=== PATIENT | female | born 1965 | race Caucasian/White ===

== ENCOUNTER → 2017-01-07 | Outpatient (CLI) | payer BC ==
--- NOTE | 2017-01-07 13:31 | Diagnostic Imaging Report ---
PROCEDURE: MR imaging of the brain without contrast. TECHNIQUE: Multiplanar, multisequence MR imaging of the brain was performed without contrast. INDICATION: Headache, bilateral arm tingling. COMPARISON: There are no previous studies available for comparison. FINDINGS: There is no mass, shift of the midline, or hemorrhage to suggest an acute intracranial abnormality. There is no abnormal signal arising from the brain on the diffusion series to indicate an area of acute ischemia either. The ventricles are not abnormally dilated. There is no signal abnormality in the periventricular white matter to suggest demyelinating disease. There is mild cortical atrophy present. The degree of atrophy is consistent with the patient's age. The orbits are symmetrical and within normal limits. The sinuses are generally clear. The seventh and eighth nerve complexes are unremarkable. IMPRESSION: 1. There is no evidence for an acute intracranial abnormality. 2. There is no sign of a mass, nor is there any evidence for demyelinating disease. Dictated by: Dictated on workstation # [id number]
--- NOTE | 2017-01-07 13:40 | Diagnostic Imaging Report ---
PROCEDURE: MR imaging cervical spine without contrast. TECHNIQUE: Multiplanar, multisequence MR imaging of the cervical spine was performed without contrast. INDICATION: Headaches, dizziness. FINDINGS: There are no previous MRI examinations available for comparison. The plain film examination of the cervical spine performed on 03/10/2015 failed to show any sign of an acute bony abnormality. On the parasagittal images of this exam, the vertebral body heights are within normal limits and similar to the prior plain film exam. There is desiccation of the disc at every level, and there is mild narrowing of the disc space at C5-6 and C6-7. There are minimal disc bulges at these two levels, but the thecal sac itself is generous. There is no sign of spinal stenosis or nerve root encroachment. The remainder of the cervical spine is unremarkable for spinal stenosis or nerve root encroachment as well. There is no abnormal signal arising from the cord or the vertebral bodies to indicate an acute abnormality. There is no sign of a paraspinal mass. The expected carotid and vertebral flow voids are evident bilaterally. IMPRESSION: 1. There is moderate degenerative disc disease throughout the cervical spine. There is no evidence for spinal stenosis or nerve root encroachment at any level, however. 2. There is no sign of an acute bony abnormality or of a cord lesion. Dictated by: Dictated on workstation # [id number]
== END ==
LOC: RAD 09:12
PROVIDERS: ATTEND Family Medicine
DX: M50.322 Other cervical disc degeneration at C5-C6 level (principal); M50.323 Other cervical disc degeneration at C6-C7 level; R51 Headache; M62.81 Muscle weakness (generalized)
CPT/HCPCS: 70551; 72141

== ENCOUNTER → 2017-04-18 | Outpatient (CLI) | payer BC ==
--- NOTE | 2017-04-21 18:54 | Diagnostic Imaging Report ---
Bilateral screening mammogram 2D views with tomosynthesis. The current study was also evaluated with a Computer Aided Detection (CAD) system. INDICATION: Screening. No current complaints stated on the questionnaire. COMPARISON: 03/29/2016. FINDINGS: The breasts are composed of scattered fibroglandular densities. There are punctate calcifications seen. Allowing for technique and positional differences, no suspicious change is seen. IMPRESSION: No significant change. ACR BI-RADS Category 2: Benign findings. Result letter will be mailed to the patient. Note: At least 10% of breast cancer is not imaged by mammography. Dictated by: Dictated on workstation # [id number]
== END ==
LOC: RAD 12:30
PROVIDERS: ATTEND Family Medicine
DX: Z12.31 Encounter for screening mammogram for malignant neoplasm of breast (principal)
CPT/HCPCS: 77067

== ENCOUNTER 2017-06-09 14:24 | Emergency (ER) | payer BC ==
[~2017-06-09] VITALS: Ht 170.2 cm; Wt 99.8 kg
[2017-06-09] MEDS ORDERED: morphine INJ 10 MG/ML 1ML (SYR OR VIAL) IM ONE (14:45)
[2017-06-09] MEDS ORDERED: DOCU-143 PO (15:04)
[2017-06-09] MEDS ORDERED: OXYC-197 PO (15:04)
--- NOTE | 2017-06-09 15:04 | ED Hip Pain/Injury ---
General Chief Complaint: Hip/Pelvic Problems Stated Complaint: TREE LIMB FELL ON HER AT HOME-HIP PAIN Nursing Triage Note: PT WAS TAKING PICTURES WHEN A LARGE LIMB FELL OUT OF A TREE AND HIT THE PATIENT. Source: patient Exam Limitations: no limitations History of Present Illness Time seen by provider: 15:01 Initial Comments To ER with reports of bilateral hip pain left greater than right. This occurred just prior to arrival. She was sitting on her front porch with her granddaughter eating cupcakes when she heard a rustling in the trees above her. She believed to be a squirrel, looked up and saw branch coming down. The branches landed on her right hip, the left hip was against the ground. She has been ambulatory since this happened however, being ambulatory worsens her pain. Timing/Duration: just prior to arrival Severity: moderate Location: hip (R), hip (L), pelvis Associated Symptoms: denies symptoms Allergies and Home Medications Allergies Uncoded Allergies: SULFA (Allergy, Unknown, 07/25/10) Home Medications Docusate Sodium 100 Mg Capsule, 100 MG PO DAILY, #30 Prescribed by: NOMAN ALEXIS on 06/09/17 1504 Oxycodone HCl/Acetaminophen 1 Each Tablet, 1 EACH PO Q4H PRN for PAIN-SEVERE, # 60 Prescribed by: NOMAN ALEXIS on 06/09/17 1504 Constitutional: see HPI EENTM: see HPI Respiratory: no symptoms reported Cardiovascular: no symptoms reported Genitourinary: no symptoms reported Musculoskeletal: see HPI Skin: no symptoms reported Psychiatric/Neurological: No Symptoms Reported Past Ifgaubm-Xdmfjk-Osehwp Hx Patient Social History Recent Foreign Travel: No Contact w/Someone Who Travel: No Recent Infectious Disease Expo: No Physical Exam Vital Signs Vital Sign - Last 12Hours 06/09/17 14:44 Temp 97.5 Pulse 70 Resp 16 B/P (MAP) 145/92 Pulse Ox 98 O2 Delivery Room Air Capillary Refill : Less Than 3 Seconds General Appearance: No Apparent Distress, WD/WN, Mild Distress HEENT: PERRL/EOMI, TMs Normal Respiratory: No Accessory Muscle Use, No Respiratory Distress Gastrointestinal: Non Tender, Soft Extremity: Normal Capillary Refill, Normal Inspection Neurologic/Psychiatric: Alert, Oriented x3, No Motor/Sensory Deficits Skin: Normal Color, Warm/Dry, Other (ecchymosis over the lateral right hip as well as a superficial abrasion) Progress/Results/Core Measures Results/Orders My Orders Orders - NOMAN ALEXIS APRN Pelvis/Anette Hips 2 Views (06/09/17 14:42) Morphine Injection (Morphine Injection (06/09/17 14:45) Ct Pelvis Wo (06/09/17 15:00) Medications Given in ED Current Medications Medications Dose Ordered Sig/Adiel Route Start Time Stop Time Status Last Admin Dose Admin Morphine Sulfate 8 mg ONCE ONCE IM 06/09/17 14:45 06/09/17 14:46 DC 06/09/17 14:52 8 MG Vital Signs/I&O Vital Sign - Last 12Hours 06/09/17 06/09/17 14:44 14:52 Temp 97.5 97.5 Pulse 70 Resp 16 B/P (MAP) 145/92 Pulse Ox 98 O2 Delivery Room Air Blood Pressure Mean: 109 Diagnostic Imaging Diagonstic Imaging: CT Comments NAME: ABHI SERNA Swipp REC#: [id number] PT STATUS: REG ER : 1965 PHYSICIAN: NOMAN ALEXIS APRN ADMIT DATE: 06/09/17/ER Draft Date of Exam:06/09/17 PELVIS/ANETTE HIPS 2 VIEWS INDICATION: Trauma. FINDINGS: There are nondisplaced fractures in the left superior and inferior pubic rami. The femoral heads and necks as well as acetabulum are intact. The right obturator ring, the symphysis and SI joints are intact. IMPRESSION: Nondisplaced fractures of the left traveling operator ring at the superior and inferior rami, no other injury apparent. Dictated on workstation # [id number] Dict: 06/09/17 1517 Trans: 06/09/17 1519 [facility] [id number] Interpreted by: IMAN GOLD Electronically signed by: NAME: ABHI SERNA Swipp REC#: [id number] PT STATUS: REG ER : 1965 PHYSICIAN: NOMAN ALEXIS APRN ADMIT DATE: 06/09/17/ER Draft Date of Exam:06/09/17 CT PELVIS WO PROCEDURE: CT pelvis without contrast. TECHNIQUE: Multiple contiguous axial images were obtained through the pelvis without the use of intravenous contrast. Sagittal and coronal reformations were performed. INDICATION: Crush injury results in left hip pain. FINDINGS: There are subtle nondisplaced fractures of the left superior and inferior pubic rami. The visualized subtrochanteric shaft, trochanters, neck and head of the femur, as well as the acetabulum are intact. The right hip is intact. No symphyseal or SI joint diastasis. Visualized lower lumbar spine and lumbosacral junction are intact. No pelvic free fluid. There are noninflamed diverticula. The uterus, adnexa, and urinary bladder are unremarkable. No significant pelvic hemorrhage evident. IMPRESSION: Nondisplaced fractures of the left superior and inferior pubic rami. Femur, acetabulum, and right hemipelvis are intact. No free fluid or significant hemorrhage. No other significant finding. Dictated on workstation # [id number] Dict: 06/09/17 1513 Trans: 06/09/17 1520 [id number] Interpreted by: IMAN GOLD Electronically signed by: Departure Communication (Admissions) Progress Notes I discussed the case with Dr. Nowak who is on-call for orthopedics. He recommends weightbearing as tolerated with a walker, pain control and outpatient follow-up. Impression Impression: Primary Impression: Fracture of left superior pubic ramus Disposition: HOME, SELF-CARE Condition: Stable Departure-Patient Inst. Decision time for Depature: 15:02 Referrals: CHRISTOPHER PEARCE MD, JOHN T MD ORENDER, JACQUELINE S DO (PCP/Family) Primary Care Physician JESSE VARMA MICHAEL P MD Patient Instructions: Pelvic Fracture (DC) Add. Discharge Instructions: 1. Use a walker when walking to help with pain for the next few weeks 2. Pain medication as directed 3. Call orthopedic surgeon of your choosing tomorrow to make an appointment to be seen for follow-up. All discharge instructions reviewed with patient and/or family. Voiced understanding. Scripts Docusate Sodium (Colace) 100 Mg Capsule 100 MG PO DAILY, #30 CAP Prov: NOMAN ALEXIS APRN 06/09/17 Oxycodone HCl/Acetaminophen (Percocet 5-325 mg Tablet) 1 Each Tablet 1 EACH PO Q4H Y for PAIN-SEVERE, #60 TAB Prov: NOMAN ALEXIS APRN 06/09/17 Work/School Note: Work Release Form Date Seen in the Emergency Department: Jun 09, 2017 Return to Work: Jun 16, 2017 NOMAN ALEXIS APRN Jun 09, 2017 15:04
--- NOTE | 2017-06-09 15:20 | Diagnostic Imaging Report ---
PROCEDURE: CT pelvis without contrast. TECHNIQUE: Multiple contiguous axial images were obtained through the pelvis without the use of intravenous contrast. Sagittal and coronal reformations were performed. INDICATION: Crush injury results in left hip pain. FINDINGS: There are subtle nondisplaced fractures of the left superior and inferior pubic rami. The visualized subtrochanteric shaft, trochanters, neck and head of the femur, as well as the acetabulum are intact. The right hip is intact. No symphyseal or SI joint diastasis. Visualized lower lumbar spine and lumbosacral junction are intact. No pelvic free fluid. There are noninflamed diverticula. The uterus, adnexa, and urinary bladder are unremarkable. No significant pelvic hemorrhage evident. IMPRESSION: Nondisplaced fractures of the left superior and inferior pubic rami. Femur, acetabulum, and right hemipelvis are intact. No free fluid or significant hemorrhage. No other significant finding. Dictated by: Dictated on workstation # [id number]
--- NOTE | 2017-06-09 15:20 | Diagnostic Imaging Report ---
INDICATION: Trauma. FINDINGS: There are nondisplaced fractures in the left superior and inferior pubic rami. The femoral heads and necks as well as acetabulum are intact. The right obturator ring, the symphysis and SI joints are intact. IMPRESSION: Nondisplaced fractures of the left transportation maintenance operator ring at the superior and inferior rami, no other injury apparent. Dictated by: Dictated on workstation # [id number]
[2017-06-09] MEDS ORDERED: IBUPROFEN 800 MG (MOTRIN) TAB PO ONE (15:30)
[2017-06-09] MEDS ORDERED: ONDANSETRON 4 MG (ZOFRAN) ORAL DISSOLVE TAB PO ONE (16:00)
[2017-06-09 16:19] VITALS: BP 138/70
== END 2017-06-09 16:19 | disposition home or self-care (01) ==
LOC: EDUNIT# 14:24 → ER 14:26
DX: S32.512A Fracture of superior rim of left pubis, initial encounter for closed fracture (principal); W20.8XXA Other cause of strike by thrown, projected or falling object, initial encounter
CPT/HCPCS: 72192; 73521; 96372; 99284

== ENCOUNTER → 2018-02-10 | Outpatient (CLI) | payer BC ==
[~2018-02-10] MED LIST: CAND16TA PO; DOCU-143 PO; LEVO150T6 PO; OXYC-197 PO
--- NOTE | 2018-02-10 08:23 | Diagnostic Imaging Report ---
Clinical indication: Patient with elevated liver enzymes. Exam: Right upper quadrant ultrasound. Comparison: None. Findings: Limited exam due to patient body habitus and overlying bowel gas. Portion of the body and pancreatic tail are obscured. Visualized portion of pancreatic head shows no significant abnormality. The liver is enlarged measuring 19.8 cm in craniocaudal dimension. The liver surface is smooth. There is no intrahepatic ductal dilation seen. The gallbladder is unremarkable with no significant gallbladder wall thickening, stones or pericholecystic fluid. There is no sonographic Soto sign. The common bile duct is obscured and cannot be evaluated. The right kidney has normal echogenicity, size and cortical thickness without hydronephrosis or mass. The right kidney measures 12.2 cm in craniocaudal dimension. There is no abdominal ascites. The visualized portions of the IVC shows no significant abnormality. IMPRESSION: 1: Limited exam due to patient body habitus and overlying bowel gas. 2: The common bile duct is obscured. There is also incomplete visualization of the pancreas. If there is clinical concern for pancreatic abnormality, serology tests may better evaluate. 3: Hepatomegaly of unknown etiology. 4: Gallbladder is unremarkable. Dictated by: Dictated on workstation # [id number]
== END ==
LOC: RAD 06:40
PROVIDERS: ATTEND Family Medicine
DX: R16.0 Hepatomegaly, not elsewhere classified (principal)
CPT/HCPCS: 76705

== ENCOUNTER 2018-03-09 15:00 | Outpatient (CLI) | payer BC ==
[~2018-03-09] VITALS: Ht 170.2 cm; Wt 99.8 kg
[~2018-03-09 15:00] MED LIST changes: -CAND16TA PO; -LEVO150T6 PO
[2018-03-09] MEDS ORDERED: CAND16TA PO (16:20)
[2018-03-09] MEDS ORDERED: LEVO150T6 PO (16:20)
== END 2018-03-09 16:00 ==
LOC: PREOP 15:00
PROVIDERS: ATTEND Surgery
DX: Z01.818 Encounter for other preprocedural examination (principal); Z12.11 Encounter for screening for malignant neoplasm of colon

== ENCOUNTER 2018-03-16 11:22 | Day surgery (SDC) | payer BC ==
[~2018-03-16] VITALS: Ht 170.2 cm; Wt 99.8 kg
[~2018-03-16 11:22] MED LIST changes: +CAND16TA PO; +LEVO150T6 PO
[2018-03-16] MEDS ORDERED: NS IV 500 ML 500 ML IV PRN (11:43)
[2018-03-16] MEDS ORDERED: NS IV 500 ML 500 ML ONE (11:46)
[2018-03-16 11:52] VITALS: BP 131/93
--- NOTE | 2018-03-16 13:04 | History & Physicial ---
History of Present Illness History of Present Illness Reason for visit/HPI To undergo screening colonoscopy. Date of Admission 03/16/18 Date Seen by Provider: Mar 16, 2018 Time Seen by Provider: 13:03 I consulted on this patient on 03/16/18 13:02 Attending Physician Cee Arita MD Admitting Physician Kassie Wilson DO Consult Allergies and Home Medications Allergies Uncoded Allergies: SULFA (Allergy, Unknown, 07/25/10) Home Medications Candesartan Cilexetil 16 Mg Tablet, 16 MG PO DAILY, (Reported) Levothyroxine Sodium 150 Mcg Tablet, 150 MCG PO DAILY, (Reported) Patient Home Medication List Home Medication List Reviewed: Yes Past Cngyfip-Wuruyo-Cnolfa Hx Patient Social History Marrital Status: Employed/Student: employed Alcohol Use: Denies Use Recreational Drug Use: No Smoking Status: Never a Smoker Recent Foreign Travel: No Contact w/other who traveled: No Recent Hopitalizations: No Seasonal Allergies Seasonal Allergies: No Surgeries Yes ( x 3) Section, Tubal Ligation Respiratory No Cardiovascular Yes Hypertension Neurological No Reproductive System Hx Reproductive Disorders: No Genitourinary No Gastrointestinal No Musculoskeletal No Endocrine History of Endocrine Disorders: No HEENT History of HEENT Disorders: No Cancer No Psychosocial History of Psychiatric Problem: No Integumentary History of Skin or Integumenta: No Blood Transfusions History of Blood Disorders: No Constitutional: no symptoms reported EENTM: no symptoms reported Respiratory: no symptoms reported Cardiovascular: no symptoms reported Gastrointestinal: no symptoms reported Genitourinary: no symptoms reported Musculoskeletal: no symptoms reported Skin: no symptoms reported Psychiatric/Neurological: No Symptoms Reported Physical Exam Vital Signs Vital Signs - First Documented 03/16/18 11:52 Temp 97.8 Pulse 102 Resp 18 B/P (MAP) 131/93 (106) Pulse Ox 95 O2 Delivery Room Air Capillary Refill : General Appearance: No Apparent Distress Neck: Normal Inspection Respiratory: Lungs Clear Cardiovascular: Regular Rate, Rhythm Gastrointestinal: Non Tender, Soft Rectal: Deferred Neurologic/Psychiatric: Alert, Oriented x3 Skin: Warm/Dry Assessment/Plan Assessment and Plan Lady to undergo screening colonoscopy. Discussed in detail. Admission Diagnosis Admission Status: Other (Outpt Proc) CEE ARITA MD Mar 16, 2018 1:04 pm
--- NOTE | 2018-03-16 13:06 | Conscious Sedation/ASA ---
Conscious Sedation Pre-Proced Time Reviewed: 13:04 ASA Class: 2 Airway Mallampati Classification: (viejas appropriate class) I. II. III, IV Lungs Heart ASA score ASA 1: a normal healthy patient ASA 2: a patient with a mild systemic disease (mid diabetes, controlled hypertension, obesity ASA 3: a patient with a severe systemic disease that limits activity (angina , COPD, prior Myocardial infarction) ASA 4: a patient with an incapacitating disease that is a constant threat to life (CHF, renal failure) ASA 5: a moribund patient not expected to survive 24 hrs. (ruptured aneurysm) ASA 6: a declared brain patient whose organs are being harvested. For emergent operations, add the letter E after the classification Grade 2 Sedation Plan: Discussed options with patient/fam Note The patient is an appropriate candidate to undergo the planned procedure, sedation, and anesthesia. The patient immediately re-assessed prior to indication. CEE HUMPHREY MD Mar 16, 2018 1:06 pm
[2018-03-16] MEDS ORDERED: MIDAZOLAM 2 MG/2 ML (VERSED) VIAL ONE ×3 (13:27→13:28)
[2018-03-16] MEDS ORDERED: fentaNYL INJECTION 100 MCG/2 ML AMP ONE ×2 (13:27)
[2018-03-16] MEDS: fentaNYL INJECTION 100 MCG/2 ML AMP IVP PRN ×3 (13:34→13:45)
[2018-03-16] MEDS: MIDAZOLAM 2 MG/2 ML (VERSED) VIAL IVP PRN ×3 (13:35→13:43)
--- NOTE | 2018-03-16 14:01 | Endo Procedure Record ---
Endo Procedure Report Date of Procedure Last Colonoscopy: No Mar 16, 2018 Surgeon (s) CEE HUMPHREY MD Post Procedure/Op Diagnosis Sigmoid diverticulosis Procedure Performed Colonoscopy to cecum Description of Procedure Anesthesia Type: Conscious Sedation Specimen(s) collected/removed None Description of the Procedure Indication for the procedure: This lady came in for screening colonoscopy. She denied any family history of colon cancer or polyps. Informed consent was obtained after reviewing the procedure in detail. Description of the procedure: She was placed in left lateral rectus position and her vital signs were monitored. Conscious sedation was achieved using Versed and fentanyl. Digital rectal examination was unremarkable. The colonoscope was then introduced in the rectum and advanced all the way up to the cecum. The scope was withdrawn slowly and the mucosa examined in a systematic fashion. Findings: Sigmoid diverticulosis. No polyps were found She tolerated the procedure well and was taken back to the nursing area in a stable condition. Impression: Screening colonoscopy. No polyps. Sigmoid diverticulosis. Recommend screening colonoscopy in 10 years. Copy Copies To 1: CAITLIN WOLF XAVIER M MD Mar 16, 2018 2:01 pm
--- NOTE | 2018-03-16 14:02 | Discharge Inst-Simple/Standard ---
Discharge Inst-Standard Discharge Medications New, Converted or Re-Newed RX: Other Patient Instructions/Follow Up Plan of Care/Instructions/FU: Repeat colonoscopy in 10 years Activity as Tolerated: Yes Discharge Diet: No Restrictions CEE HUMPHREY MD Mar 16, 2018 2:02 pm
[2018-03-16 14:20] VITALS: BP 117/72
[2018-03-16 14:50] VITALS: BP 115/80
[2018-03-16 15:00] VITALS: BP 115/80
== END 2018-03-16 15:00 | disposition home or self-care (01) ==
LOC: ENDO 11:22
PROVIDERS: ATTEND Surgery
DX: Z12.11 Encounter for screening for malignant neoplasm of colon (principal); K57.30 Diverticulosis of large intestine without perforation or abscess without bleeding; I10 Essential (primary) hypertension

== ENCOUNTER → 2018-05-01 | Outpatient (CLI) | payer BC ==
--- NOTE | 2018-05-01 12:48 | Diagnostic Imaging Report ---
Digital mammogram bilateral screening with 3-D tomosynthesis. This study was compared to the prior exams of 04/18/2017, 03/29/2016, and 02/07/2015. At this time, there are no current complaints. The current study was also evaluated with a Computer Aided Detection (CAD) system. FINDINGS: The fibroglandular tissue in both breasts is heterogeneously dense. This does limit the sensitivity of this exam. Overall, there does not appear to have been any significant change. The small group of punctate microcalcifications in the midportion of the left breast seen previously is again evident and no different. There is no primary or secondary sign of malignancy noted. IMPRESSION: There is no evidence for malignancy. ACR BI-RADS Category 1: Negative. Result letter will be mailed to the patient. Note: At least 10% of breast cancer is not imaged by mammography. Dictated by: Dictated on workstation # [id number]
== END ==
LOC: RAD 08:33
PROVIDERS: ATTEND Family Medicine
DX: Z12.31 Encounter for screening mammogram for malignant neoplasm of breast (principal)
CPT/HCPCS: 77067

== ENCOUNTER 2018-10-16 13:00 | Emergency (ER) | payer BC ==
[~2018-10-16] VITALS: Ht 172.7 cm; Wt 94.3 kg
[~2018-10-16 13:00] MED LIST changes: -CAND16TA PO; +CAND16TA25 PO; -OXYC-197 PO; +OXYC1TAB87 PO
--- NOTE | 2018-10-16 13:45 | Diagnostic Imaging Report ---
Indication: Shortness of breath. Time of exam: 1:33 PM No prior studies available for comparison. The heart size is normal. The pulmonary vascularity is unremarkable. The lungs are clear. No infiltrate, effusion or pneumothorax is detected. Impression: No acute cardiopulmonary process is detected. Dictated by: Dictated on workstation # [id number]
[2018-10-16 13:50] LABS: BILIRUBIN,URINE NEGATIVE (NEGATIVE); CLARITY,URINE CLEAR; COLOR,URINE YELLOW; GLUCOSE, URINE (UA) NEGATIVE (NEGATIVE); KETONES,URINE NEGATIVE (NEGATIVE); LEUKOCYTE ESTERASE ,URINE 2+ (NEGATIVE); NITRITE,URINE NEGATIVE (NEGATIVE); PH,URINE 5 (5-9); PROTEIN,URINE NEGATIVE (NEGATIVE); UROBILINOGEN,URINE NORMAL (NORMAL)
[2018-10-16 13:57] LABS: BASOPHILS % (AUTO) 0 % (0-10); EOSINOPHILS % (AUTO) 1 % (0-10); HEMATOCRIT 41 % (35-52); HEMOGLOBIN 13.7 G/DL (11.5-16.0); LYMPHOCYTES # (AUTO) 0.9 X 10^3 (1.0-4.0); LYMPHOCYTES % (AUTO) 14 % (12-44); MEAN CORPUSCULAR HEMOGLOBIN 28 PG (25-34); MEAN CORPUSCULAR HGB CONC 33 G/DL (32-36); MEAN CORPUSCULAR VOLUME 86 FL (80-99); MEAN PLATELET VOLUME 9.6 FL (7.4-10.4); MONOCYTES # (AUTO) 0.3 X 10^3 (0.0-1.0); MONOCYTES % (AUTO) 4 % (0-12); NEUTROPHILS # (AUTO) 5.2 X 10^3 (1.8-7.8); NEUTROPHILS % (AUTO) 81 % (42-75); PLATELET COUNT 369 10^3/uL (130-400); RED BLOOD COUNT 4.83 10^6/uL (4.35-5.85); RED CELL DISTRIBUTION WIDTH 13.1 % (10.0-14.5); WHITE BLOOD COUNT 6.5 10^3/uL (4.3-11.0)
[2018-10-16 14:06] LABS: BACTERIA,URINE NEGATIVE /HPF; RBC,URINE RARE /HPF
[2018-10-16 14:07] LABS: SQUAMOUS EPITHELIAL CELL,UR 0-2 /HPF
[2018-10-16 14:08] LABS: CALCIUM OXALATE CRYSTALS,UR MODERATE /LPF
[2018-10-16 14:14] LABS: ALANINE AMINOTRANSFERASE 22 U/L (0-55); ALBUMIN 3.9 GM/DL (3.2-4.5); ALKALINE PHOSPHATASE 134 U/L (40-136); BILIRUBIN,TOTAL 0.5 MG/DL (0.1-1.0); BUN/CREATININE RATIO 26; CALCIUM 8.9 MG/DL (8.5-10.1); CARBON DIOXIDE 20 MMOL/L (21-32); CHLORIDE 107 MMOL/L (98-107); CREATININE SERUM 0.76 MG/DL (0.60-1.30); GFR ESTIMATED > 60; GLUCOSE 97 MG/DL (70-105); POTASSIUM 3.9 MMOL/L (3.6-5.0); SODIUM 137 MMOL/L (135-145); TOTAL PROTEIN 7.2 GM/DL (6.4-8.2)
--- NOTE | 2018-10-16 14:31 | ED Cardiac General ---
History of Present Illness General Chief Complaint: Cardiac/General Problems Stated Complaint: SOB Nursing Triage Note: PATIENT STATES THAT TODAY SHE FEELS LIKE HER HEART IS "HICCUPPING." WHEN THIS HAPPENS SHE BECOMES SOB. Source: patient Exam Limitations: no limitations History of Present Illness Date Seen by Provider: Oct 16, 2018 Time Seen by Provider: 14:27 Initial Comments The patient is a 52-year-old white female who presents today with complaints of her heart skipping. She has been aware of this for 2 or 3 days. There is no history of chest pain or previous myocardial injury. She reported that she walks about 1 mile daily. When this skipping occurs she feels as if she is short of breath and walking is much more difficult. She does not take any albuterol products. She drinks about 4 cups of coffee per day. Her father had a massive heart attack when he was in his early to mid 50s. She is about 3 years post menopause. Timing/Duration: 1-2 days Location: central Allergies and Home Medications Allergies Uncoded Allergies: SULFA (Allergy, Unknown, 07/25/10) Home Medications Candesartan Cilexetil 16 Mg Tablet, 16 MG PO DAILY, (Reported) Levothyroxine Sodium 150 Mcg Tablet, 150 MCG PO DAILY, (Reported) Patient Home Medication List Home Medication List Reviewed: Yes Review of Systems Review of Systems Constitutional: see HPI EENTM: No Symptoms Reported Respiratory: No Symptoms Reported Cardiovascular: No Symptoms Reported Gastrointestinal: No Symptoms Reported Genitourinary: No Symptoms Reported Musculoskeletal: no symptoms reported Skin: no symptoms reported Psychiatric/Neurological: No Symptoms Reported Endocrine: No Symptoms Reported Hematologic/Lymphatic: No Symptoms Reported Past Vlltajj-Kptocc-Kdmfzo Hx Patient Social History Alcohol Use: Denies Use Recreational Drug Use: No Smoking Status: Never a Smoker 2nd Hand Smoke Exposure: No Recent Foreign Travel: No Contact w/Someone Who Travel: No Recent Infectious Disease Expo: No Recent Hopitalizations: No Physical Abuse: No Sexual Abuse: No Seasonal Allergies Seasonal Allergies: No Past Medical History Surgeries: Yes ( x 3) Section, Tubal Ligation Respiratory: No Cardiac: Yes Hypertension Neurological: No Reproductive Disorders: No Genitourinary: No Gastrointestinal: No Musculoskeletal: No Endocrine: Yes HEENT: No Cancer: No Psychosocial: No Integumentary: No Blood Disorders: No Physical Exam Vital Signs Vital Signs - First Documented 10/16/18 13:05 Temp 98.9 Pulse 109 Resp 20 B/P (MAP) 135/92 (106) Pulse Ox 95 Capillary Refill : Less Than 3 Seconds Height, Weight, BMI Height: 5'8.00" Weight: 208lbs. 0oz. 94.212788mc; 34.5 BMI Method:Stated General Appearance: No Apparent Distress, WD/WN HEENT: Normal ENT Inspection Neck: Normal Inspection Respiratory: Chest Non Tender, Lungs Clear, Normal Breath Sounds, No Accessory Muscle Use, No Respiratory Distress Cardiovascular: Regular Rate, Rhythm, No Edema, No Gallop, No JVD, No Murmur, Normal Peripheral Pulses Gastrointestinal: Normal Bowel Sounds, No Organomegaly, No Pulsatile Mass, Non Tender Extremity: Normal Capillary Refill, Normal Inspection, Normal Range of Motion, Non Tender, No Calf Tenderness, No Pedal Edema Neurologic/Psychiatric: Alert, Oriented x3, No Motor/Sensory Deficits, Normal Mood/Affect Skin: Normal Color, Warm/Dry Lymphatic: No Adenopathy Progress/Results/Core Measures Results/Orders Lab Results Laboratory Tests Test 10/16/18 13:30 10/16/18 13:45 Range/Units Urine Color YELLOW Urine Clarity CLEAR Urine pH 5 5-9 Urine Specific [place] 1.020 1.016-1.022 Urine Protein NEGATIVE NEGATIVE Urine Glucose (UA) NEGATIVE NEGATIVE Urine Ketones NEGATIVE NEGATIVE Urine Nitrite NEGATIVE NEGATIVE Urine Bilirubin NEGATIVE NEGATIVE Urine Urobilinogen NORMAL NORMAL MG/DL Urine Leukocyte Esterase 2+ H NEGATIVE Urine RBC (Auto) 2+ H NEGATIVE Urine RBC RARE /HPF Urine WBC 5-10 H /HPF Urine Squamous Epithelial Cells 0-2 /HPF Urine Crystals PRESENT H /LPF Urine Calcium Oxalate Crystals MODERATE H /LPF Urine Bacteria NEGATIVE /HPF Urine Casts NONE /LPF Urine Mucus MODERATE H /LPF Urine Culture Indicated YES White Blood Count 6.5 4.3-11.0 10^3/uL Red Blood Count 4.83 4.35-5.85 10^6/uL Hemoglobin 13.7 11.5-16.0 G/DL Hematocrit 41 35-52 % Mean Corpuscular Volume 86 80-99 FL Mean Corpuscular Hemoglobin 28 25-34 PG Mean Corpuscular Hemoglobin Concent 33 32-36 G/DL Red Cell Distribution Width 13.1 10.0-14.5 % Platelet Count 369 130-400 10^3/uL Mean Platelet Volume 9.6 7.4-10.4 FL Neutrophils (%) (Auto) 81 H 42-75 % Lymphocytes (%) (Auto) 14 12-44 % Monocytes (%) (Auto) 4 0-12 % Eosinophils (%) (Auto) 1 0-10 % Basophils (%) (Auto) 0 0-10 % Neutrophils # (Auto) 5.2 1.8-7.8 X 10^3 Lymphocytes # (Auto) 0.9 L 1.0-4.0 X 10^3 Monocytes # (Auto) 0.3 0.0-1.0 X 10^3 Eosinophils # (Auto) 0.0 0.0-0.3 10^3/uL Basophils # (Auto) 0.0 0.0-0.1 10^3/uL Sodium Level 137 135-145 MMOL/L Potassium Level 3.9 3.6-5.0 MMOL/L Chloride Level 107 98-107 MMOL/L Carbon Dioxide Level 20 L 21-32 MMOL/L Anion Gap 10 5-14 MMOL/L Blood Urea Nitrogen 20 H 7-18 MG/DL Creatinine 0.76 0.60-1.30 MG/DL Estimat Glomerular Filtration Rate > 60 BUN/Creatinine Ratio 26 Glucose Level 97 70-105 MG/DL Calcium Level 8.9 8.5-10.1 MG/DL Corrected Calcium 9.0 8.5-10.1 MG/DL Total Bilirubin 0.5 0.1-1.0 MG/DL Aspartate Amino Transf (AST/SGOT) 15 5-34 U/L Alanine Aminotransferase (ALT/SGPT) 22 0-55 U/L Alkaline Phosphatase 134 40-136 U/L Troponin I < 0.028 <0.028 NG/ML Total Protein 7.2 6.4-8.2 GM/DL Albumin 3.9 3.2-4.5 GM/DL Thyroid Stimulating Hormone (TSH) 0.52 0.35-4.94 UIU/ML My Orders Orders - ARETHA DELEON MD Cbc With Automated Diff (10/16/18 13:01) Comprehensive Metabolic Panel (10/16/18 13:01) Ua Culture If Indicated (10/16/18 13:01) Chest 1 View, Ap/Pa Only (10/16/18 13:01) Ekg Tracing (10/16/18 13:15) Urine Culture (10/16/18 13:30) Thyroid Stimulating Hormone (10/16/18 14:08) Troponin I (10/16/18 14:17) Vital Signs/I&O 10/16/18 13:05 Temp 98.9 Pulse 109 Resp 20 B/P (MAP) 135/92 (106) Pulse Ox 95 Blood Pressure Mean: 106 Departure Communication (Admissions) Discussed the findings with JANELLE Anders. The patient has a relative tachycardia at 104. She has a single PVC on her EKG. Troponin and TSH are normal. The plan will be to start her on Toprol-XL 100 mg daily. She will be asked to take only one cup of coffee per day. She is to call JANELLE Anders's office on Friday to be for a time to see him on Friday. Impression Primary Impression: benign PVCs Disposition: HOME, SELF-CARE Condition: Stable/Unchanged Departure-Patient Inst. Decision time for Depature: 15:18 Referrals: JANELLE AVILES MD FACP [facility] CAITLIN WOLF DO (PCP/Family) Primary Care Physician Add. Discharge Instructions: All discharge instructions reviewed with patient and/or family. Voiced understanding. Take one or fewer cups of coffee daily. No other caffeine-containing drinks are to be used. Take Toprol as directed. Take the first Toprol tonight and then daily each a.m. Call JANELLE Anders's office Friday for an appointment on Friday. His office number is [phone] Take one 81 mg aspirin today and daily Scripts Metoprolol Succinate (Toprol Xl) 100 Mg Tab.er.24h 100 MG PO DAILY, #30 TAB Prov: ARETHA DELEON MD 10/16/18 ARETHA DELEON MD Oct 16, 2018 14:30
[2018-10-16] MEDS ORDERED: METO100T6 PO (15:21)
[2018-10-16 15:37] VITALS: BP 135/92
== END 2018-10-16 15:35 | disposition home or self-care (01) ==
LOC: EDUNIT# 13:00 → ER 13:01
DX: I49.3 Ventricular premature depolarization (principal); I10 Essential (primary) hypertension; Z88.2 Allergy status to sulfonamides; Z82.49 Family history of ischemic heart disease and other diseases of the circulatory system; Z98.51 Tubal ligation status; Z98.890 Other specified postprocedural states
CPT/HCPCS: 36415; 71045; 80053; 81000; 84443; 84484; 85025; 87088

== ENCOUNTER → 2018-12-04 | Outpatient (CLI) | payer BC ==
[~2018-12-04] MED LIST changes: +METO100T6 PO
== END ==
LOC: CARD 13:34
PROVIDERS: ATTEND Internal Medicine Cardiovascular Disease
DX: R00.2 Palpitations (principal); I10 Essential (primary) hypertension; Z86.39 Personal history of other endocrine, nutritional and metabolic disease; I51.7 Cardiomegaly
CPT/HCPCS: 93306

== ENCOUNTER → 2018-12-15 | Outpatient (CLI) | payer BC ==
[~2018-12-15] VITALS: Ht 172.7 cm; Wt 96.2 kg
[~2018-12-15] MED LIST changes: +CATHETER FLUSH 10 ML SYR IV PRN
[2018-12-15 09:00] VITALS: BP 130/88
[2018-12-15 09:06] VITALS: BP 128/85
[2018-12-15 09:10] VITALS: BP 152/62
--- NOTE | 2018-12-16 04:44 | STRESS TEST ---
DATE OF SERVICE: 12/15/2018 RESTING AND POST EXERCISE TECHNETIUM-99M TETROFOSMIN SPECT CT IMAGING ORDERING PHYSICIAN: Dr. Rolle. PRIMARY PHYSICIAN: Dr. Wilson. CLINICAL DIAGNOSES: Palpitations, hypertension. Baseline images were carried out after injection of 10.46 mCi technetium-99m Tetrofosmin. Subsequently, exercise was carried out on a treadmill. Munir protocol was employed. Heart rate and blood pressure responses to exercise were normal. She exercised for a total of 6 minutes and 30 seconds. After she had attained target heart rate, 30.4 mCi of technetium-99m Tetrofosmin were injected and the exercise was continued for another minute. Exercise was stopped on account of fatigue. There did not appear to be significant ST segment deviation in the immediate post-exercise phase. Review of images at rest and following stress does not indicate any distinct perfusion defects consistent with significant myocardial ischemia or infarction. Gated images show normal global left ventricular systolic function and normal regional wall motion. Left ventricular ejection fraction is calculated to be 79%. Left ventricular end diastolic volume is 31 mL. TID is absent (0.61). CONCLUSIONS: 1. This study does not indicate evidence of significant myocardial ischemia. 2. Relatively low exercise capacity. 3. Normal regional wall motion. 4. Normal to hyperdynamic left ventricular systolic function with a calculated ejection fraction 79%. Job ID: [id number] DocumentID: [id number] Dictated Date: 12/15/2018 23:20:29 Draw String Knotter Date: 12/16/2018 04:43:38 Dictated By: JANELLE ROLLE MD, MA, FACP, FACC,
== END ==
LOC: CARD 07:10
PROVIDERS: ATTEND Internal Medicine Cardiovascular Disease
DX: I10 Essential (primary) hypertension (principal); R00.2 Palpitations; Z86.39 Personal history of other endocrine, nutritional and metabolic disease
CPT/HCPCS: 78452; 93017; 93225; 93226

== ENCOUNTER → 2019-05-03 | Outpatient (CLI) | payer BC ==
[~2019-05-03] MED LIST changes: -CATHETER FLUSH 10 ML SYR IV PRN
--- NOTE | 2019-05-03 19:41 | Diagnostic Imaging Report ---
INDICATION: Routine screening. Comparison is made with prior mammograms from 05/01/2018 and 04/18/2017. 2-D and 3-D bilateral screening mammography was performed. The current study was also evaluated with a Computer Aided Detection (CAD) system. 3-D tomosynthesis was also performed and reviewed. FINDINGS: Scattered fibroglandular densities are identified bilaterally. The parenchymal pattern is stable. A small nodular density in the medial aspect of the right breast retroareolar region is stable consistent with benign etiology. Benign calcifications in the left breast are stable. No new mass or malignant-appearing microcalcifications are seen. Axillae are unremarkable. IMPRESSION: No mammographic features suspicious for malignancy are identified. ACR BI-RADS Category 2: Benign findings. Result letter will be mailed to the patient. Note: At least 10% of breast cancer is not imaged by mammography. Dictated by: Dictated on workstation # [id number]
== END ==
LOC: RAD 14:34
PROVIDERS: ATTEND Family Medicine
DX: Z12.31 Encounter for screening mammogram for malignant neoplasm of breast (principal)
CPT/HCPCS: 77067

== ENCOUNTER → 2019-10-29 | Outpatient (CLI) | payer BC ==
--- NOTE | 2019-10-29 08:34 | Diagnostic Imaging Report ---
INDICATION: Right upper quadrant abdominal pain. TECHNIQUE: Gallbladder sonography performed in the routine fashion. FINDINGS: The liver shows no focal lesions. Gallbladder is normal in appearance with no stones or wall thickening. Common duct could not be well visualized but there was no intrahepatic biliary dilatation. Visualized portion of the IVC is patent. The right kidney measured 10.7 cm in length and showed no hydronephrosis. There is no ascites. IMPRESSION: Unremarkable gallbladder sonography, with some limitation as above. Dictated by: Dictated on workstation # [id number]
== END ==
LOC: RAD 07:38
PROVIDERS: ATTEND Family Medicine
DX: R10.11 Right upper quadrant pain (principal)
CPT/HCPCS: 76705

== ENCOUNTER → 2020-05-05 | Outpatient (CLI) | payer BC ==
--- NOTE | 2020-05-05 11:47 | Diagnostic Imaging Report ---
Digital mammogram. Indication: Bilateral screening This study is compared to the prior exams of 05/03/2019, 05/01/2018 and 04/18/2017. At this time there are no current complaints. There are scattered fibroglandular densities in both breasts which could obscure a lesion. Overall, there does not appear to have been any significant change when compared to the prior study. The group of fine microcalcifications in the 12 o'clock position of the left breast at middle depth seen on the previous exams is again evident and no different. There is no primary or secondary sign of malignancy noted. Impression: There is no evidence of malignancy. ACR BI-RADS Category 1: Negative. Result letter will be mailed to the patient. Note: At least 10% of breast cancer is not imaged by mammography. Dictated by: Dictated on workstation # [id number]
== END ==
LOC: RAD 08:42
PROVIDERS: ATTEND Nurse Practitioner Family
DX: Z12.31 Encounter for screening mammogram for malignant neoplasm of breast (principal)
CPT/HCPCS: 77063; 77067

== ENCOUNTER → 2021-05-07 | Outpatient (CLI) | payer BC ==
--- NOTE | 2021-05-08 13:46 | Diagnostic Imaging Report ---
INDICATION: Routine screening. COMPARISON: 05/05/2020 and 05/03/2019. TECHNIQUE: 2D and 3D bilateral screening mammography was performed with CAD. FINDINGS: Both breasts show scattered fibroglandular densities. The left breast calcifications appear stable. No new mass or malignant-appearing microcalcifications are seen. The axillae are unremarkable. IMPRESSION: No mammographic features suspicious for malignancy are identified. ACR BI-RADS Category 2: Benign findings. Result letter will be mailed to the patient. Note: At least 10% of breast cancer is not imaged by mammography. Dictated by: Dictated on workstation # [id number]
== END ==
LOC: RAD 15:45
PROVIDERS: ATTEND Nurse Practitioner Family
DX: Z12.31 Encounter for screening mammogram for malignant neoplasm of breast (principal)
CPT/HCPCS: 77063; 77067

== ENCOUNTER 2021-10-31 09:37 | Emergency (ER) | payer BC ==
[~2021-10-31] VITALS: Ht 172 cm; Wt 88.0 kg
[2021-10-31 10:27] LABS: BASOPHILS % (AUTO) 0 % (0-10); EOSINOPHILS % (AUTO) 0 % (0-10); HEMATOCRIT 44 % (35-52); HEMOGLOBIN 14.6 g/dL (11.5-16.0); LYMPHOCYTES # (AUTO) 0.5 10^3/uL (1.0-4.0); LYMPHOCYTES % (AUTO) 11 % (12-44); MEAN CORPUSCULAR HEMOGLOBIN 29 pg (25-34); MEAN CORPUSCULAR HGB CONC 33 g/dL (32-36); MEAN CORPUSCULAR VOLUME 88 fL (80-99); MEAN PLATELET VOLUME 9.8 fL (9.0-12.2); MONOCYTES # (AUTO) 0.1 10^3/uL (0.0-1.0); MONOCYTES % (AUTO) 3 % (0-12); NEUTROPHILS # (AUTO) 3.8 10^3/uL (1.8-7.8); NEUTROPHILS % (AUTO) 85 % (42-75); PLATELET COUNT 248 10^3/uL (130-400); WHITE BLOOD COUNT 4.5 10^3/uL (4.3-11.0)
[2021-10-31] MEDS ORDERED: NS IV 1000 ML 1,000 ML IV SCH (10:30)
[2021-10-31] MEDS ORDERED: ACETAMINOPHEN 500 MG TAB (TYLENOL) PO ONE (10:30)
[2021-10-31] MEDS ORDERED: ONDANSETRON 4 MG/2 ML (SDV) Z0FRAN IVP ONE (10:30)
--- NOTE | 2021-10-31 10:35 | ED Respiratory ---
General Chief Complaint: COVID19 Suspect/Confirmed Stated Complaint: COVID + Nursing Triage Note: PT AMB TO RM 9 WITH WITH C/O TESTING POS FOR COVID LAST FRIDAY AND STILL HAVING A COUGH, FEVER, AND VOMITTING. PT WAS SUPPOSED TO GET ANTIBODY INFUSION YESTERDAY BUT IT GOT CANCELLED. PT WAS GIVEN ZPACK YESTERDAY BY DR FINLEY Source: patient Exam Limitations: no limitations History of Present Illness Date Seen by Provider: Oct 31, 2021 Time Seen by Provider: 10:00 Initial Comments Patient is a 56-year-old female who presents to the emergency room with her today chief complaint of Covid symptoms in addition to shortness of breath, generalized weakness, persistent fever. Patient states that her started getting symptoms of Covid on 21 October, they both tested positive on 23 October. Her symptoms started on Friday the . Patient saw her primary care provider and was started on a Z-Jamil a couple of days ago. Today is day 3. She continues to have fever, she has worsening shortness of breath and cough. She is nauseous. She denies any chest pain or abdominal pain. She states her urine is dark orange, the color of my orange Gatorade". She denies any weakness numbness or tingling in her extremities. She does feel lightheaded when standing. History of hypertension. She was scheduled to have Sotromivab yesterday however the hospital canceled her appointment as there is currently a shortage and none was available. All other review of systems reviewed and negative except as stated. Timing/Duration: week Severity: severe Prior Episodes/Possible Cause: illness exposure Associated Symptoms: cough, dizziness, fever/chills, lightheadedness, muscle aches, shortness of breath Allergies and Home Medications Allergies Coded Allergies: Sulfa (Sulfonamide Antibiotics) (Unverified Allergy, Unknown, 12/15/18) Patient Home Medication List Home Medication List Reviewed: Yes Benzonatate (Tessalon Perles) 100 Mg Capsule, 200 MG PO Q8H PRN for cough Prescribed by: DONY YANEZ on 10/31/21 1123 Candesartan Cilexetil (Atacand) 16 Mg Tablet, 16 MG PO DAILY, (Reported) Entered as Reported by: NOE VILLAVICENCIO on 03/09/18 1620 Levothyroxine Sodium (Levothyroxine Sodium) 150 Mcg Tablet, 150 MCG PO DAILY, (Reported) Entered as Reported by: NOE VILLAVICENCIO on 03/09/18 1620 Metoprolol Succinate (Toprol Xl) 100 Mg Tab.er.24h, 100 MG PO DAILY Prescribed by: ARETHA DELEON on 10/16/18 1521 Ondansetron (Ondansetron Odt) 4 Mg Tab.rapdis, 4 MG PO Q8H PRN for nausea Prescribed by: DONY YANEZ on 10/31/21 1123 Review of Systems Review of Systems Constitutional: see HPI EENTM: no symptoms reported Respiratory: cough, dyspnea on exertion, short of breath Cardiovascular: no symptoms reported Gastrointestinal: diarrhea, nausea Genitourinary: other : No Musculoskeletal: muscle cramps Skin: no symptoms reported Psychiatric/Neurological: Headache All Other Systems Reviewed Negative Unless Noted: Yes Past Yfvnqfo-Qrsxsn-Myhiqp Hx Patient Social History Tobacco Use?: No Substance use?: No Alcohol Use?: No Pt feels they are or have been: No Immunizations Up To Date Influenza Vaccine Up-to-Date: No; Not Current Seasonal Allergies Seasonal Allergies: No Past Medical History Surgeries: Yes ( x 3) Section, Tubal Ligation Respiratory: No Cardiac: Yes Hypertension Neurological: No Reproductive Disorders: No Genitourinary: No Gastrointestinal: No Musculoskeletal: No Endocrine: Yes HEENT: No Cancer: No Psychosocial: No Integumentary: No Blood Disorders: No Physical Exam Vital Signs - First Documented 10/31/21 09:50 Temp 38.3 Pulse 99 Resp 20 B/P (MAP) 132/82 (99) Pulse Ox 95 O2 Delivery Room Air Capillary Refill : Height: 5'8.00" Weight: 212lbs. 0.0oz. 96.124911gq; 29.00 BMI Method:Stated General Appearance: WD/WN, mild distress (Pale and appears to feel bad) Eyes: Bilateral Eye Normal Inspection, Bilateral Eye PERRL, Bilateral Eye EOMI HEENT: PERRL/EOMI, normal ENT inspection, TMs normal, other (Dry oral mucosa) Neck: non-tender, full range of motion, supple, normal inspection Respiratory: no respiratory distress, no accessory muscle use, crackles (Crackles throughout the right lung, clear on the left), other (Oxygen saturations 94% on room air) Cardiovascular: regular rate, rhythm (Tachycardic 115) Gastrointestinal: normal bowel sounds, non tender, soft Extremities: normal range of motion, non-tender, normal inspection, no pedal edema, normal capillary refill Neurologic/Psychiatric: alert, normal mood/affect, oriented x 3 Skin: warm/dry, pallor Focused Exam Lactate Level 10/31/21 10:15: Lactic Acid Level 1.21 Lactic Acid Level Laboratory Tests Test 10/31/21 10:15 Lactic Acid Level 1.21 MMOL/L (0.50-2.00) Progress/Results/Core Measures Suspected Sepsis SIRS Temperature: Pulse: 99 Respiratory Rate: 20 Laboratory Tests 10/31/21 10:15: White Blood Count 4.5 Blood Pressure 132 /82 Mean: 99 10/31/21 10:15: Lactic Acid Level 1.21 Laboratory Tests 10/31/21 10:15: Creatinine 0.76, INR Comment 0.9, Platelet Count 248, Total Bilirubin 0.5 Results/Orders Lab Results Laboratory Tests Test 10/31/21 10:15 10/31/21 11:55 Range/Units White Blood Count 4.5 4.3-11.0 10^3/uL Red Blood Count 4.99 3.80-5.11 10^6/uL Hemoglobin 14.6 11.5-16.0 g/dL Hematocrit 44 35-52 % Mean Corpuscular Volume 88 80-99 fL Mean Corpuscular Hemoglobin 29 25-34 pg Mean Corpuscular Hemoglobin Concent 33 32-36 g/dL Red Cell Distribution Width 12.0 10.0-14.5 % Platelet Count 248 130-400 10^3/uL Mean Platelet Volume 9.8 9.0-12.2 fL Immature Granulocyte % (Auto) 0 % Neutrophils (%) (Auto) 85 H 42-75 % Lymphocytes (%) (Auto) 11 L 12-44 % Monocytes (%) (Auto) 3 0-12 % Eosinophils (%) (Auto) 0 0-10 % Basophils (%) (Auto) 0 0-10 % Neutrophils # (Auto) 3.8 1.8-7.8 10^3/uL Lymphocytes # (Auto) 0.5 L 1.0-4.0 10^3/uL Monocytes # (Auto) 0.1 0.0-1.0 10^3/uL Eosinophils # (Auto) 0.0 0.0-0.3 10^3/uL Basophils # (Auto) 0.0 0.0-0.1 10^3/uL Immature Granulocyte # (Auto) 0.0 0.0-0.1 10^3/uL Prothrombin Time 12.5 12.2-14.7 SEC INR Comment 0.9 0.8-1.4 Activated Partial Thromboplast Time 37 H 24-35 SEC D-Dimer 0.65 H 0.00-0.49 UG/ML Sodium Level 133 L 135-145 MMOL/L Potassium Level 3.7 3.6-5.0 MMOL/L Chloride Level 100 98-107 MMOL/L Carbon Dioxide Level 21 21-32 MMOL/L Anion Gap 12 5-14 MMOL/L Blood Urea Nitrogen 12 7-18 MG/DL Creatinine 0.76 0.60-1.30 MG/DL Estimat Glomerular Filtration Rate 91 BUN/Creatinine Ratio 16 Glucose Level 96 70-105 MG/DL Lactic Acid Level 1.21 0.50-2.00 MMOL/L Calcium Level 8.8 8.5-10.1 MG/DL Corrected Calcium 8.9 8.5-10.1 MG/DL Total Bilirubin 0.5 0.1-1.0 MG/DL Aspartate Amino Transf (AST/SGOT) 42 H 5-34 U/L Alanine Aminotransferase (ALT/SGPT) 41 0-55 U/L Alkaline Phosphatase 125 40-136 U/L C-Reactive Protein High Sensitivity 7.33 H 0.00-0.50 MG/DL Total Protein 7.5 6.4-8.2 GM/DL Albumin 3.9 3.2-4.5 GM/DL Procalcitonin 0.04 <0.10 NG/ML Urine Color YELLOW Urine Clarity CLEAR Urine pH 6.0 5-9 Urine Specific [place] 1.025 H 1.016-1.022 Urine Protein TRACE H NEGATIVE Urine Glucose (UA) NEGATIVE NEGATIVE Urine Ketones NEGATIVE NEGATIVE Urine Nitrite NEGATIVE NEGATIVE Urine Bilirubin NEGATIVE NEGATIVE Urine Urobilinogen 0.2 < = 1.0 MG/DL Urine Leukocyte Esterase 1+ H NEGATIVE Urine RBC (Auto) TRACE-I H NEGATIVE Urine RBC NONE /HPF Urine WBC 10-25 H /HPF Urine Squamous Epithelial Cells 2-5 /HPF Urine Crystals NONE /LPF Urine Bacteria TRACE /HPF Urine Casts NONE /LPF Urine Mucus NEGATIVE /LPF Urine Culture Indicated YES My Orders Orders - DONY YANEZ MD Cbc With Automated Diff (10/31/21 10:21) Comprehensive Metabolic Panel (10/31/21 10:21) Blood Culture (10/31/21 10:21) Sputum Culture (10/31/21 10:21) Urinalysis (10/31/21 10:21) Urine Culture (10/31/21 10:21) Protime With Inr (10/31/21 10:21) Partial Thromboplastin Time (10/31/21 10:21) Chest 1 View, Ap/Pa Only (10/31/21 10:21) Ed Iv/Invasive Line Start (10/31/21 10:21) Ed Iv/Invasive Line Start (10/31/21 10:21) Vital Signs Adult Sepsis Patie Q15M (10/31/21 10:21) O2 (10/31/21 10:21) Remove Rings In Anticipation O (10/31/21 10:21) Lactic Acid Analyzer (10/31/21 10:21) Fibrin Degradation Products (10/31/21 10:21) Hs C Reactive Protein (10/31/21 10:21) Procalcitonin (Pct) (10/31/21 10:21) Ns Iv 1000 Ml (Sodium Chloride 0.9%) (10/31/21 10:30) Acetaminophen Tablet (Tylenol Tablet) (10/31/21 10:30) Ondansetron Injection (Zofran Injectio (10/31/21 10:30) Medications Given in ED Current Medications Medications Dose Ordered Sig/Adiel Route Start Time Stop Time Status Last Admin Dose Admin Acetaminophen 1,000 mg ONCE ONCE PO 10/31/21 10:30 10/31/21 10:31 DC 10/31/21 10:45 1,000 MG Ondansetron HCl 4 mg ONCE ONCE IVP 10/31/21 10:30 10/31/21 10:31 DC 10/31/21 10:39 4 MG Vital Signs/I&O 10/31/21 09:50 Temp 38.3 Pulse 99 Resp 20 B/P (MAP) 132/82 (99) Pulse Ox 95 O2 Delivery Room Air Capillary Refill : Blood Pressure Mean: 99 Progress Note : Time: 12:34 Progress Note Patient reevaluated, looks much much better more color, feels better. Vital signs are stable. We got her up and moved around her oxygen saturations stayed 94 to 96%. I discussed return precautions, oxygen monitoring. They both verbalized understanding. All questions were sought and answered Diagnostic Imaging Diagonstic Imaging: Xray Plain Films/CT/US/NM/MRI: chest Comments [email or web address] [place], [place] NAME: [facility] REC#: [id number] PT STATUS: REG ER : 1965 PHYSICIAN: DONY YANEZ MD ADMIT DATE: 10/31/21/ER Draft Date of Exam:10/31/21 CHEST 1 VIEW, AP/PA ONLY INDICATION: Shortness of breath and fever. TIME OF EXAM: 11:00 a.m. Correlation is made with prior chest from 10/16/2018 FINDINGS: Heart size stable. There appears to be some minimal peripheral based infiltrate in the left mid and lower lung field. There may be some minimal infiltrate right base as well. There is no effusion or pneumothorax identified. Pulmonary vascularity is normal. IMPRESSION: Minimal bilateral infiltrates present suggestive of pneumonia. Dictated on workstation # [id number] Dict: 10/31/21 1101 Trans: 10/31/21 1103 [id number] Interpreted by: ZEN LAI MD Electronically signed by: Departure Impression Primary Impression: Pneumonia due to COVID-19 virus Disposition: HOME, SELF-CARE Condition: Stable Departure-Patient Inst. Decision time for Depature: 11:24 Referrals: ANUP FINLEY MD (PCP/Family) Primary Care Physician Patient Instructions: COVID-19 ED Add. Discharge Instructions: Drink lots of fluids to stay well-hydrated. Use the Zofran and Tessalon Perles as needed for nausea and cough every 8 hours. Try and stay active, up and moving around, taking deep breaths. Continue ibuprofen and Tylenol for aches and pains and any fever over 100.4. You should get a pulse oximeter or oxygen monitor from your local pharmacy, if you notice especially with activity that your oxygen levels are dipping under 90% you need to be back in the emergency room. Follow-up with your primary care physician in a couple of weeks. A copy of your emergency department visit has been sent to Dr. Finley's office. Scripts Benzonatate (TESSALON PERLES) 100 Mg Capsule 200 MG PO Q8H PRN for cough, #30 CAP Prov: DONY YANEZ MD 10/31/21 Ondansetron (Ondansetron Odt) 4 Mg Tab.rapdis 4 MG PO Q8H PRN for nausea, #20 TAB Prov: DONY YANEZ MD 10/31/21 Copy Copies To 1: ANUP FINLEY MD, KATHRYN M MD Oct 31, 2021 10:35
[2021-10-31 10:51] LABS: ALBUMIN 3.9 GM/DL (3.2-4.5); POTASSIUM 3.7 MMOL/L (3.6-5.0)
[2021-10-31 10:52] LABS: CALCIUM 8.8 MG/DL (8.5-10.1)
[2021-10-31 10:53] LABS: TOTAL PROTEIN 7.5 GM/DL (6.4-8.2)
[2021-10-31 10:55] LABS: BILIRUBIN,TOTAL 0.5 MG/DL (0.1-1.0)
[2021-10-31 10:56] LABS: FIBRIN DEGRADATION PRODUCTS 0.65 UG/ML (0.00-0.49); INR 0.9 (0.8-1.4); PROTHROMBIN TIME PATIENT 12.5 SEC (12.2-14.7)
[2021-10-31 10:57] LABS: CREATININE SERUM 0.76 MG/DL (0.60-1.30)
--- NOTE | 2021-10-31 11:04 | Diagnostic Imaging Report ---
INDICATION: Shortness of breath and fever. TIME OF EXAM: 11:00 a.m. Correlation is made with prior chest from 10/16/2018 FINDINGS: Heart size stable. There appears to be some minimal peripheral based infiltrate in the left mid and lower lung field. There may be some minimal infiltrate right base as well. There is no effusion or pneumothorax identified. Pulmonary vascularity is normal. IMPRESSION: Minimal bilateral infiltrates present suggestive of pneumonia. Dictated by: Dictated on workstation # [id number]
[2021-10-31] MEDS ORDERED: BENZ100C18 PO (11:23)
[2021-10-31] MEDS ORDERED: ONDA4TAB11 PO (11:23)
[2021-10-31 12:07] LABS: BILIRUBIN,URINE NEGATIVE (NEGATIVE); CLARITY,URINE CLEAR; COLOR,URINE YELLOW; GLUCOSE, URINE (UA) NEGATIVE (NEGATIVE); KETONES,URINE NEGATIVE (NEGATIVE); LEUKOCYTE ESTERASE ,URINE 1+ (NEGATIVE); NITRITE,URINE NEGATIVE (NEGATIVE); PROTEIN,URINE TRACE (NEGATIVE)
[2021-10-31 12:19] LABS: BACTERIA,URINE TRACE /HPF
[2021-10-31 12:40] VITALS: BP 130/84
== END 2021-10-31 12:42 | disposition home or self-care (01) ==
LOC: EDUNIT# 09:37 → ER 09:38
DX: U07.1 COVID-19 (principal); J12.82 Pneumonia due to coronavirus disease 2019; I10 Essential (primary) hypertension
CPT/HCPCS: 36415; 71045; 80053; 81000; 83605; 84145; 85025; 85379; 85610; 85730; 86141; 87040; 87077; 87088

== ENCOUNTER 2021-11-01 20:44 | Emergency (ER) | payer BC ==
[~2021-11-01] VITALS: Ht 172 cm; Wt 88.4 kg
[~2021-11-01 20:44] MED LIST changes: +BENZ100C18 PO; +ONDA4TAB11 PO
[2021-11-01 21:40] LABS: BASOPHILS % (AUTO) 0 % (0-10); EOSINOPHILS % (AUTO) 0 % (0-10); HEMATOCRIT 37 % (35-52); HEMOGLOBIN 12.3 g/dL (11.5-16.0); LYMPHOCYTES # (AUTO) 0.6 10^3/uL (1.0-4.0); LYMPHOCYTES % (AUTO) 13 % (12-44); MEAN CORPUSCULAR HEMOGLOBIN 29 pg (25-34); MEAN CORPUSCULAR HGB CONC 34 g/dL (32-36); MEAN CORPUSCULAR VOLUME 86 fL (80-99); MEAN PLATELET VOLUME 9.2 fL (9.0-12.2); MONOCYTES # (AUTO) 0.1 10^3/uL (0.0-1.0); MONOCYTES % (AUTO) 3 % (0-12); NEUTROPHILS # (AUTO) 3.6 10^3/uL (1.8-7.8); NEUTROPHILS % (AUTO) 84 % (42-75); PLATELET COUNT 259 10^3/uL (130-400); WHITE BLOOD COUNT 4.3 10^3/uL (4.3-11.0)
--- NOTE | 2021-11-01 21:43 | ED General ---
General Chief Complaint: Respiratory Problems Stated Complaint: O2 SAT LOW/FEVER Nursing Triage Note: PATIENT HAS BEEN COVID POSITIVE SINCE 10/23/21. PATIENT HERE FOR SHORTNESS OF BREATH AND CONCERNS FOR O2. PATIENT AMB. TO ROOM 09. Source of Information: Patient, Old Records Exam Limitations: No Limitations History of Present Illness Date Seen by Provider: Nov 01, 2021 Time Seen by Provider: 21:01 Initial Comments This 56-year-old woman with COVID-19 is on infection day #9 and presents with concerns about oxygen saturation. She was having trouble getting a good oxygen saturation with her pulse oximeter at home. She noted a saturation of 84% measured on her toe. She has thick acrylic nails and is having difficulty measuring her oxygen saturation because of that. She has mild shortness of breath and slightly productive cough. She also complains of body aches and aching across her shoulders. She is nauseated without vomiting. She is p resently taking a azithromycin, Omnicef, dexamethasone, and Zofran. She was unable to procure a monoclonal antibody treatment due to supply shortage. She was beyond the treatment window for antiviral therapies. Pulse ox is being obtained by a forehead monitor at this time and she is stable on room air with saturations in the 93 to 94% range. She reports fevers have been persistent despite using Tylenol and ibuprofen. She also notes some extremity muscle cramping. She was seen yesterday in this ER and hydrated with IV fluids. Allergies and Home Medications Allergies Coded Allergies: Sulfa (Sulfonamide Antibiotics) (Unverified Allergy, Unknown, 12/15/18) Patient Home Medication List Home Medication List Reviewed: Yes Benzonatate (Tessalon Perles) 100 Mg Capsule, 200 MG PO Q8H PRN for cough Prescribed by: DONY YANEZ on 10/31/21 1123 Candesartan Cilexetil (Atacand) 16 Mg Tablet, 16 MG PO DAILY, (Reported) Entered as Reported by: NOE VILLAVICENCIO on 03/09/18 1620 Levothyroxine Sodium (Levothyroxine Sodium) 150 Mcg Tablet, 150 MCG PO DAILY, (Reported) Entered as Reported by: NOE VILLAVICENCIO on 03/09/18 1620 Metoprolol Succinate (Toprol Xl) 100 Mg Tab.er.24h, 100 MG PO DAILY Prescribed by: ARETHA DELEON on 10/16/18 1521 Ondansetron (Ondansetron Odt) 4 Mg Tab.rapdis, 4 MG PO Q8H PRN for nausea Prescribed by: DONY YANEZ on 10/31/21 1123 Review of Systems Review of Systems Constitutional: see HPI EENTM: no symptoms reported Respiratory: see HPI Cardiovascular: no symptoms reported Gastrointestinal: see HPI Genitourinary: no symptoms reported : No Musculoskeletal: see HPI Skin: no symptoms reported Psychiatric/Neurological: No Symptoms Reported Hematologic/Lymphatic: No Symptoms Reported Immunological/Allergic: no symptoms reported Past Vmdfape-Mneapz-Hichjq Hx Patient Social History Tobacco Use?: No Substance use?: No Alcohol Use?: No Pt feels they are or have been: No Seasonal Allergies Seasonal Allergies: No Past Medical History Surgery/Hospitalization HX: C-SECTIONS X'S 3, LAST ONE 1994 Surgeries: Yes ( x 3) Section, Tubal Ligation Respiratory: Yes (COVID-24 October 2021) Cardiac: Yes Hypertension Neurological: No : No Reproductive Disorders: No Genitourinary: No Gastrointestinal: No Musculoskeletal: No Endocrine: Yes Hypothyroidsim HEENT: No Cancer: No Psychosocial: No Integumentary: No Blood Disorders: No Physical Exam Vital Signs Vital Signs - First Documented Capillary Refill : Less Than 3 Seconds Height, Weight, BMI Height: 5'8.00" Weight: 212lbs. 0.0oz. 96.265986uf; 29.00 BMI Method:Stated General Appearance: WD/WN, Other (Generally ill-appearing) HEENT: PERRL/EOMI, Normal ENT Inspection, Pharynx Normal Respiratory: Lungs Clear, Normal Breath Sounds, No Accessory Muscle Use, No Respiratory Distress, Other (Slight tachypnea) Cardiovascular: Regular Rate, Rhythm, No Edema, No Murmur Gastrointestinal: Normal Bowel Sounds, Non Tender, Soft Extremity: Normal Inspection, No Pedal Edema Neurologic/Psychiatric: Alert, Oriented x3, No Motor/Sensory Deficits, Normal Mood/Affect, smoking pipe liner II-XII Norm as Tested Skin: Normal Color, Warm/Dry, Other (Facial flushing) Focused Exam Lactate Level 11/01/21 21:15: Lactic Acid Level 0.61 Lactic Acid Level Laboratory Tests Test 11/01/21 21:15 Lactic Acid Level 0.61 MMOL/L (0.50-2.00) Progress/Results/Core Measures Suspected Sepsis Recent Fever Within 48 Hours: Yes Infection Criteria Present: Suspected New Infection New/Unexplained Altered Menta: No SIRS Temperature: Pulse: 95 Respiratory Rate: 22 Laboratory Tests 11/01/21 21:15: White Blood Count 4.3 Blood Pressure 116 /77 Mean: 90 11/01/21 21:15: Lactic Acid Level 0.61 Laboratory Tests 11/01/21 21:15: Creatinine 0.68, Platelet Count 259, Total Bilirubin 0.4 Results/Orders Lab Results Laboratory Tests Test 11/01/21 21:15 Range/Units White Blood Count 4.3 4.3-11.0 10^3/uL Red Blood Count 4.26 3.80-5.11 10^6/uL Hemoglobin 12.3 11.5-16.0 g/dL Hematocrit 37 35-52 % Mean Corpuscular Volume 86 80-99 fL Mean Corpuscular Hemoglobin 29 25-34 pg Mean Corpuscular Hemoglobin Concent 34 32-36 g/dL Red Cell Distribution Width 11.9 10.0-14.5 % Platelet Count 259 130-400 10^3/uL Mean Platelet Volume 9.2 9.0-12.2 fL Immature Granulocyte % (Auto) 1 % Neutrophils (%) (Auto) 84 H 42-75 % Lymphocytes (%) (Auto) 13 12-44 % Monocytes (%) (Auto) 3 0-12 % Eosinophils (%) (Auto) 0 0-10 % Basophils (%) (Auto) 0 0-10 % Neutrophils # (Auto) 3.6 1.8-7.8 10^3/uL Lymphocytes # (Auto) 0.6 L 1.0-4.0 10^3/uL Monocytes # (Auto) 0.1 0.0-1.0 10^3/uL Eosinophils # (Auto) 0.0 0.0-0.3 10^3/uL Basophils # (Auto) 0.0 0.0-0.1 10^3/uL Immature Granulocyte # (Auto) 0.0 0.0-0.1 10^3/uL D-Dimer 0.78 H 0.00-0.49 UG/ML Sodium Level 133 L 135-145 MMOL/L Potassium Level 3.7 3.6-5.0 MMOL/L Chloride Level 102 98-107 MMOL/L Carbon Dioxide Level 18 L 21-32 MMOL/L Anion Gap 13 5-14 MMOL/L Blood Urea Nitrogen 14 7-18 MG/DL Creatinine 0.68 0.60-1.30 MG/DL Estimat Glomerular Filtration Rate 102 BUN/Creatinine Ratio 21 Glucose Level 102 70-105 MG/DL Lactic Acid Level 0.61 0.50-2.00 MMOL/L Calcium Level 8.0 L 8.5-10.1 MG/DL Corrected Calcium 8.6 8.5-10.1 MG/DL Magnesium Level 1.6 1.6-2.4 MG/DL Total Bilirubin 0.4 0.1-1.0 MG/DL Aspartate Amino Transf (AST/SGOT) 43 H 5-34 U/L Alanine Aminotransferase (ALT/SGPT) 32 0-55 U/L Alkaline Phosphatase 137 H 40-136 U/L Total Creatine Kinase 126 29-168 U/L C-Reactive Protein High Sensitivity 11.52 H 0.00-0.50 MG/DL Total Protein 6.2 L 6.4-8.2 GM/DL Albumin 3.2 3.2-4.5 GM/DL Procalcitonin 0.05 <0.10 NG/ML Micro Results Microbiology 11/01/21 Blood Culture - Preliminary, Resulted No growth 11/01/21 Blood Culture - Preliminary, Resulted No growth My Orders Orders - ADAM SANCHEZ MD Cbc With Automated Diff (11/01/21 21:01) Comprehensive Metabolic Panel (11/01/21 21:01) Fibrin Degradation Products (11/01/21 21:01) Procalcitonin (Pct) (11/01/21 21:01) Hs C Reactive Protein (11/01/21 21:01) Blood Culture (11/01/21 21:01) Chest 1 View, Ap/Pa Only (11/01/21 21:01) Lactic Acid Analyzer (11/01/21 21:01) Ed Iv/Invasive Line Start (11/01/21 21:01) Creatine Kinase (11/01/21 21:45) Magnesium (11/01/21 21:45) Ct Angio Chest W (11/01/21 22:23) Iohexol Injection (Omnipaque 350 Mg/Ml 1 (11/01/21 23:45) Received Contrast (Hold Metformin- Contr (11/01/21 23:45) Sodium Chloride Flush (Catheter Flush Sy (11/01/21 23:45) Ns (Ivpb) (Sodium Chloride 0.9% Ivpb Bag (11/01/21 23:45) Medications Given in ED Vital Signs/I&O 11/01/21 11/01/21 11/01/21 11/01/21 21:09 21:09 21:09 21:09 Temp 37.8 37.8 37.0 Pulse 95 95 95 Resp 22 B/P (MAP) 116/77 (90) 116/77 109/79 Pulse Ox 94 O2 Delivery Room Air Room Air Room Air Room Air 11/02/21 00:53 Temp 37.1 Pulse 78 Resp 16 B/P (MAP) 112/68 Pulse Ox 92 O2 Delivery Room Air Capillary Refill : Less Than 3 Seconds Blood Pressure Mean: 90 Progress Note #1: Time: 21:44 Progress Note We will continue to monitor her oxygen saturations while she is in the ER. We are assessing labs, chest x-ray, and D-dimer. Progress Note #2: Progress Note Patient remained stable throughout her ER stay. There were no critical findings to require admission. O2 saturation remained in the 93-94% range the majority of the visit. Patient was advised to complete steroid and antibiotic therapies and monitor O2 closely at home. Diagnostic Imaging Diagonstic Imaging: Xray Plain Films/CT/US/NM/MRI: chest Comments NAME: ABHI SERNA [facility] REC#: [id number] PT STATUS: REG ER : 1965 PHYSICIAN: ADAM SANCHEZ MD ADMIT DATE: 11/01/21/ER Signed Date of Exam:11/01/21 CHEST 1 VIEW, AP/PA ONLY INDICATION: Covid patient. COMPARISON: 10/31/2021. FINDINGS: Patchy multifocal infiltrates are present, increased in radiographic density. No effusion or pneumothorax. No failure pattern. IMPRESSION: Radiographic progression of multifocal pneumonia. Dictated by: Dictated on workstation # [id number] Dict: 11/01/212204 Trans: 11/01/212221 [facility] [id number] Interpreted by: IMAN GOLD Electronically signed by: IMAN GOLD 11/01/21 7030 Diagonstic Imaging: CT Plain Films/CT/US/NM/MRI: chest Comments CT chest [employer] report reviewed. Findings consistent with COVID pneumonia. No PE. Departure Impression Primary Impression: Pneumonia due to COVID-19 virus Disposition: HOME, SELF-CARE Condition: Stable Departure-Patient Inst. Decision time for Depature: 00:49 Referrals: ANUP CAN MD (PCP/Family) Primary Care Physician Patient Instructions: COVID-19 Overview Add. Discharge Instructions: Continue your medications as previously prescribed including your antibiotics. Finish the entire course of antibiotics even if you are feeling better. Drink plenty of clear liquids to stay well-hydrated. Use Zofran (ondansetron) as prescribed to help with nausea and vomiting. Continue to monitor your oxygen levels. If possible remove the artificial nail and/or nail andorran from at least one of your fingers or toes to create a clean surface on which to measure your oxygen levels. If you have repeated measurements less than 92% or any measurements less than 90%, please return to the ER. Call with questions or concerns. Return to the ER if you have any other worsening of condition. All discharge instructions reviewed with patient and/or family. Voiced understanding. Copy Copies To 1: ANUP CAN MD, JOSHUA T MD Nov 01, 2021 21:43
[2021-11-01 21:47] LABS: ALBUMIN 3.2 GM/DL (3.2-4.5); BILIRUBIN,TOTAL 0.4 MG/DL (0.1-1.0); CREATININE SERUM 0.68 MG/DL (0.60-1.30); POTASSIUM 3.7 MMOL/L (3.6-5.0); TOTAL PROTEIN 6.2 GM/DL (6.4-8.2)
--- NOTE | 2021-11-01 22:09 | Diagnostic Imaging Report ---
INDICATION: Covid patient. COMPARISON: 10/31/2021. FINDINGS: Patchy multifocal infiltrates are present, increased in radiographic density. No effusion or pneumothorax. No failure pattern. IMPRESSION: Radiographic progression of multifocal pneumonia. Dictated by: Dictated on workstation # [id number]
[2021-11-01 22:13] LABS: MAGNESIUM 1.6 MG/DL (1.6-2.4)
[2021-11-01] MEDS ORDERED: CATHETER FLUSH 10 ML SYR IV PRN (23:45)
[2021-11-01] MEDS ORDERED: HOLD METFORMIN - RECEIVED CONTRAST 20 ML VIAL IV SCH (23:45)
[2021-11-01] MEDS ORDERED: NS 100 ML (IVPB) BAG IV ONE (23:45)
[2021-11-01] MEDS ORDERED: IOHEXOL 350 MG/ML 100 ML (OMNIPAQUE 350) VIAL IV ONE (23:45)
[2021-11-02 00:53] VITALS: BP 112/68
--- NOTE | 2021-11-02 05:45 | Diagnostic Imaging Report ---
PROCEDURE: CT angiography of the chest with contrast. TECHNIQUE: Multiple contiguous axial images were obtained through the chest after uneventful bolus administration of intravenous contrast. 3D reconstructed CTA MIP acquisitions were also performed. Auto Exposure Controls were utilized during the CT exam to meet ALARA standards for radiation dose reduction. INDICATION: Shortness of breath, Covid There are patchy groundglass infiltrates throughout both lungs. There are no effusions or pneumothoraces. There is no hilar or mediastinal lymphadenopathy. Aorta appears normal. There are no pulmonary emboli. IMPRESSION: Multifocal groundglass infiltrates throughout both lungs typical of Covid pneumonia. There is no evidence for pulmonary embolism. I agree with preliminary interpretation. Dictated by: Dictated on workstation # [id number]
== END 2021-11-02 00:57 | disposition home or self-care (01) ==
LOC: EDUNIT# 20:44 → ER 20:47
DX: U07.1 COVID-19 (principal); J12.82 Pneumonia due to coronavirus disease 2019; I10 Essential (primary) hypertension; E03.9 Hypothyroidism, unspecified; Z79.890 Hormone replacement therapy; Z79.899 Other long term (current) drug therapy
CPT/HCPCS: 36415; 71045; 71275; 80053; 82550; 83605; 83735; 84145; 85025; 85379; 86141; 87040

== ENCOUNTER → 2022-05-08 | Outpatient (CLI) | payer BC ==
--- NOTE | 2022-05-08 10:32 | Diagnostic Imaging Report ---
Indication: Routine screening. Comparison is made with prior mammogram 05/07/2021 and 05/05/2020. 2-D and 3-D bilateral screening mammography was performed with CAD. CAD is utilized. The current study was also evaluated with a Computer Aided Detection (CAD) system. Scattered fibroglandular densities are identified bilaterally. The parenchymal pattern appears stable. No mass or malignant-appearing microcalcifications are seen. Occasional benign calcifications present. Axillae are unremarkable. IMPRESSION: BI-RADS Category 2 No mammographic features suspicious for malignancy are identified. ACR BI-RADS Category 2: Benign findings. Result letter will be mailed to the patient. Note: At least 10% of breast cancer is not imaged by mammography. Dictated by: Dictated on workstation # [id number]
== END ==
LOC: RAD 07:30
PROVIDERS: ATTEND Family Medicine
DX: Z12.31 Encounter for screening mammogram for malignant neoplasm of breast (principal)
CPT/HCPCS: 77063; 77067

== ENCOUNTER → 2023-07-21 | Outpatient (CLI) | payer BC ==
--- NOTE | 2023-07-21 10:50 | Diagnostic Imaging Report ---
INDICATION: Routine screening. COMPARISON: 05/08/2022 and 05/07/2021. TECHNIQUE: 2D and 3D bilateral screening mammography was performed with CAD. FINDINGS: Scattered fibroglandular densities are identified bilaterally. The parenchymal pattern is stable. No mass or malignant-appearing microcalcifications are seen. The axillae are unremarkable. IMPRESSION: No mammographic features suspicious for malignancy are identified. ACR BI-RADS Category 1: Negative. Result letter will be mailed to the patient. Note: At least 10% of breast cancer is not imaged by mammography. Dictated by: Dictated on workstation # [id number]
== END ==
LOC: CANPRECLI → RAD 07:16
PROVIDERS: ATTEND Obstetrics & Gynecology
DX: Z12.31 Encounter for screening mammogram for malignant neoplasm of breast (principal)
CPT/HCPCS: 77063; 77067